=== PATIENT | female | born 1975 | race Caucasian/White ===

== ENCOUNTER 2017-11-25 20:08 | Inpatient (IN) ==
[2017-11-26] MEDS ORDERED: ONDANSETRON 4 MG/2 ML VIAL IV STA (03:54)
[2017-11-26] MEDS ORDERED: MORPHINE 2 MG/1 ML SYRINGE IV STA ×2 (03:54→04:12)
[2017-11-26 04:03] LABS: Basophils % 0.3 % (0.0-0.8); Eosinophils # 0.1 10*3/uL (0.0-0.87); Eosinophils % 1.6 % (0.00-10.9); Hematocrit 39.8 VOL% (35.7-47.0); Immature Granulocytes % 0.3 %; Immature Granulocytes Absolute 0.03 #; Lymphocytes # 1.7 10*3/uL (1.4-4.0); Lymphocytes % 19.5 % (21.3-54.2); Mean Corpuscular HGB Conc 32.7 GM/DL (32-36); Mean Corpuscular Hemoglobin 27 PG (27-34); Mean Corpuscular Volume 82.6 FL (87-102); Mean Platelet Volume 10.4 FL (9.6-12.0); Monocytes # 0.5 10*3/uL (0.11-0.8); Monocytes % 5.8 % (1.7-12.7); Neutrophils # 6.3 10*3/uL (1.4-7.4); Neutrophils % 72.5 % (38.7-73.9); Platelet Count 176 T/CUMM (130-400); Red Blood Count 4.82 MC/CUMM (3.8-5.5); Red Cell Distribution Width 13.9 % (9.3-17.3); White Blood Count 8.7 T/CUMM (4-12)
[2017-11-26] MEDS ORDERED: MORPHINE 4 MG/1 ML VIAL ONE (04:08)
[2017-11-26] MEDS ORDERED: ONDANSETRON 4 MG/2 ML VIAL ONE (04:08)
[2017-11-26 04:13] LABS: Albumin 3.7 G/DL (3.4-5.0); Bilirubin,Total 0.5 MG/DL (0.2-1.0); Calcium 8.4 MG/DL (8.5-10.1); Osmolality,Calculated 279.4 MOS/KG (273-304); Potassium 3.7 MMOL/L (3.5-5.1); Total Protein 6.8 G/DL (6.4-8.3)
[2017-11-26 04:14] LABS: Apearance,Urine CLOUDY (Clear); Bilirubin,Urine Negative (Negative); Blood, Urine Small mg/dL (Negative); Glucose,Urine (UA) Negative (Negative); Ketones,Urine Negative (Negative); Mucus,Urine Occasional /LPF (Occasional); Nitrite,Urine Negative (Negative); Protein,Urine Negative; RBC,Urine 9 /HPF (0-4); Squamous Epithelial Cell,Urine Many /HPF (0-10); Urine Color Yellow (Yellow); Urine Urobilinogen < 2.0 EU/DL (0.2-1.0); WBC,Urine 3 /HPF (0-6)
[2017-11-26 04:33] LABS: Lactic Acid 0.9 MMOL/L (0.4-2.0)
[2017-11-26] MEDS ORDERED: CEFEPIME 2,000 MG in SODIUM CHLORIDE 0.9% 100 ML IV STA (05:49)
[2017-11-26] MEDS ORDERED: metroNIDAZOLE INJ 500 MG in PREMIX 1 EACH IV STA (05:50)
[2017-11-26] MEDS ORDERED: metroNIDAZOLE 500 MG/100 ML PREMIX IV ONE (06:47)
[2017-11-26] MEDS ORDERED: ACETAMINOPHEN 325 MG TABLET PO PRN (07:54)
[2017-11-26] MEDS ORDERED: CEFEPIME 2,000 MG VIAL ONE (08:18)
[2017-11-26] MEDS: PIPERACILLIN/TAZOBACTAM 3,375 MG in SODIUM CHLORIDE 0.9% 100 ML IV SCH ×3 (10:18→23:45)
[2017-11-26] MEDS: SODIUM CHLORIDE 0.9% 1,000 ML IV SCH ×3 (10:57→21:09)
[2017-11-26] MEDS: KETOROLAC 15 MG/1 ML VIAL IV SCH ×2 (16:24→22:29)
[2017-11-26] MEDS: PANTOPRAZOLE 40 MG TABLET PO SCH (21:09)
[2017-11-26] MEDS: ATORVASTATIN 20 MG TABLET PO SCH (21:09)
[2017-11-27] MEDS: SODIUM CHLORIDE 0.9% 1,000 ML IV SCH ×2 (00:29→15:01)
[2017-11-27] MEDS: KETOROLAC 15 MG/1 ML VIAL IV SCH ×4 (03:46→21:34)
[2017-11-27 05:30] LABS: Basophils % 0.4 % (0.0-0.8); Eosinophils # 0.1 10*3/uL (0.0-0.87); Eosinophils % 1.8 % (0.00-10.9); Hematocrit 41.3 VOL% (35.7-47.0); Hemoglobin 13.4 GM/DL (12.0-16.0); Immature Granulocytes % 0.5 %; Immature Granulocytes Absolute 0.04 #; Lymphocytes # 1.5 10*3/uL (1.4-4.0); Lymphocytes % 20.1 % (21.3-54.2); Mean Corpuscular HGB Conc 32.4 GM/DL (32-36); Mean Corpuscular Hemoglobin 27 PG (27-34); Mean Corpuscular Volume 83.9 FL (87-102); Mean Platelet Volume 10.2 FL (9.6-12.0); Monocytes # 0.5 10*3/uL (0.11-0.8); Monocytes % 6.5 % (1.7-12.7); Neutrophils # 5.2 10*3/uL (1.4-7.4); Neutrophils % 70.7 % (38.7-73.9); Platelet Count 163 T/CUMM (130-400); Red Blood Count 4.92 MC/CUMM (3.8-5.5); White Blood Count 7.4 T/CUMM (4-12)
[2017-11-27 06:02] LABS: Calcium 8.5 MG/DL (8.5-10.1)
[2017-11-27 06:03] LABS: Osmolality,Calculated 277.4 MOS/KG (273-304)
[2017-11-27] MEDS: PANTOPRAZOLE 40 MG TABLET PO SCH ×2 (08:24→21:34)
[2017-11-27] MEDS: PIPERACILLIN/TAZOBACTAM 3,375 MG in SODIUM CHLORIDE 0.9% 100 ML IV SCH ×3 (08:24→23:52)
[2017-11-27] MEDS: SERTRALINE 100 MG TABLET PO SCH (08:24)
[2017-11-27] MEDS: ATORVASTATIN 20 MG TABLET PO SCH (21:34)
[2017-11-28 05:24] LABS: Basophils % 0.3 % (0.0-0.8); Eosinophils # 0.1 10*3/uL (0.0-0.87); Eosinophils % 1.6 % (0.00-10.9); Hematocrit 36.1 VOL% (35.7-47.0); Immature Granulocytes % 0.6 %; Immature Granulocytes Absolute 0.04 #; Lymphocytes # 1.5 10*3/uL (1.4-4.0); Lymphocytes % 21.7 % (21.3-54.2); Mean Corpuscular HGB Conc 33.2 GM/DL (32-36); Mean Corpuscular Hemoglobin 27 PG (27-34); Mean Corpuscular Volume 81.7 FL (87-102); Mean Platelet Volume 10.5 FL (9.6-12.0); Monocytes # 0.4 10*3/uL (0.11-0.8); Monocytes % 6.1 % (1.7-12.7); Neutrophils # 4.8 10*3/uL (1.4-7.4); Neutrophils % 69.7 % (38.7-73.9); Platelet Count 151 T/CUMM (130-400); Red Blood Count 4.42 MC/CUMM (3.8-5.5); Red Cell Distribution Width 13.7 % (9.3-17.3); White Blood Count 6.8 T/CUMM (4-12)
[2017-11-28 05:55] LABS: Potassium 4.1 MMOL/L (3.5-5.1)
[2017-11-28] MEDS: KETOROLAC 15 MG/1 ML VIAL IV SCH ×4 (05:56→21:36)
[2017-11-28] MEDS: SODIUM CHLORIDE 0.9% 1,000 ML IV SCH ×3 (06:39→18:09)
[2017-11-28] MEDS: SERTRALINE 100 MG TABLET PO SCH (08:20)
[2017-11-28] MEDS: PANTOPRAZOLE 40 MG TABLET PO SCH ×2 (08:20→21:35)
[2017-11-28] MEDS: PIPERACILLIN/TAZOBACTAM 3,375 MG in SODIUM CHLORIDE 0.9% 100 ML IV SCH ×2 (08:22→17:57)
[2017-11-28] MEDS: ATORVASTATIN 20 MG TABLET PO SCH (21:35)
[2017-11-28] MEDS ORDERED: rOPINIRole 1 MG TABLET PO SCH (21:44)
[2017-11-28] MEDS ORDERED: GENTAMICIN INJ 80 MG in PREMIX 1 EACH IV ONE (22:00)
[2017-11-29] MEDS: PIPERACILLIN/TAZOBACTAM 3,375 MG in SODIUM CHLORIDE 0.9% 100 ML IV SCH ×2 (00:37→09:43)
[2017-11-29] MEDS: SODIUM CHLORIDE 0.9% 1,000 ML IV SCH ×2 (00:38→20:28)
[2017-11-29] MEDS: KETOROLAC 15 MG/1 ML VIAL IV SCH ×2 (04:51→09:47)
[2017-11-29] MEDS: PANTOPRAZOLE 40 MG TABLET PO SCH ×2 (09:44→20:21)
[2017-11-29] MEDS: SERTRALINE 100 MG TABLET PO SCH (09:44)
[2017-11-29] MEDS ORDERED: GENTAMICIN INJ 80 MG in PREMIX 1 EACH IV ONE ×2 (12:00→12:39)
[2017-11-29] MEDS: metroNIDAZOLE INJ 500 MG in PREMIX 1 EACH IV SCH ×2 (14:22→20:21)
[2017-11-29] MEDS: ENOXAPARIN 40 MG/0.4 ML SYRINGE SUBCUT SCH (14:23)
[2017-11-29] MEDS: ATORVASTATIN 20 MG TABLET PO SCH (20:21)
[2017-11-30] MEDS: metroNIDAZOLE INJ 500 MG in PREMIX 1 EACH IV SCH ×3 (01:49→15:26)
[2017-11-30 04:06] LABS: Basophils % 0.1 % (0.0-0.8); Eosinophils # 0.2 10*3/uL (0.0-0.87); Eosinophils % 2.5 % (0.00-10.9); Hematocrit 34.7 VOL% (35.7-47.0); Hemoglobin 11.5 GM/DL (12.0-16.0); Immature Granulocytes % 0.3 %; Immature Granulocytes Absolute 0.02 #; Lymphocytes # 1.5 10*3/uL (1.4-4.0); Lymphocytes % 19.6 % (21.3-54.2); Mean Corpuscular HGB Conc 33.1 GM/DL (32-36); Mean Corpuscular Hemoglobin 27 PG (27-34); Mean Corpuscular Volume 82.6 FL (87-102); Mean Platelet Volume 10.8 FL (9.6-12.0); Monocytes # 0.4 10*3/uL (0.11-0.8); Monocytes % 5.3 % (1.7-12.7); Neutrophils # 5.5 10*3/uL (1.4-7.4); Neutrophils % 72.2 % (38.7-73.9); Platelet Count 151 T/CUMM (130-400); Red Cell Distribution Width 13.7 % (9.3-17.3); White Blood Count 7.6 T/CUMM (4-12)
[2017-11-30] MEDS: SODIUM CHLORIDE 0.9% 1,000 ML IV SCH ×4 (06:01→16:44)
[2017-11-30] MEDS: SERTRALINE 100 MG TABLET PO SCH (08:43)
[2017-11-30] MEDS: PANTOPRAZOLE 40 MG TABLET PO SCH (08:43)
[2017-11-30] MEDS: ENOXAPARIN 40 MG/0.4 ML SYRINGE SUBCUT SCH (15:24)
[2017-11-30 16:40] VITALS: BP 112/64
== END 2017-11-30 17:48 | disposition home or self-care (01) | DRG 392 ==
LOC: N.ED 20:08 → SUATTDRO 11-26 07:52 → N.EDINP 11-26 07:52 → N.3E 11-26 09:40
PROVIDERS: ADMIT Internal Medicine; ATTEND Family Medicine

== ENCOUNTER 2018-10-25 04:39 | Observation (INO) ==
[2018-10-25] MEDS ORDERED: ONDANSETRON 4 MG/2 ML VIAL IV STA (06:38)
[2018-10-25] MEDS ORDERED: SODIUM CHLORIDE 0.9% 1,000 ML IV STA (06:38)
[2018-10-25] MEDS ORDERED: KETOROLAC 30 MG/1 ML VIAL IV STA (06:39)
[2018-10-25] MEDS ORDERED: methylPREDNISolone SOD SUC 125 MG/2 ML VIAL IV STA (09:18)
[2018-10-25] MEDS: METOCLOPRAMIDE 10 MG/2 ML VIAL IV SCH ×2 (12:52→18:10)
[2018-10-25] MEDS: diphenhydrAMINE 50 MG/1 ML VIAL IV SCH ×2 (12:56→18:10)
[2018-10-25] MEDS: SODIUM CHLOR 0.9% KCL 40 MEQ 40 MEQ/1,000 ML BAG IV SCH ×2 (13:06→21:38)
[2018-10-25] MEDS: rOPINIRole 1 MG TABLET PO SCH (20:34)
[2018-10-25] MEDS: PANTOPRAZOLE 40 MG TABLET PO SCH (20:34)
[2018-10-26] MEDS: diphenhydrAMINE 50 MG/1 ML VIAL IV SCH ×5 (01:19→23:57)
[2018-10-26] MEDS: METOCLOPRAMIDE 10 MG/2 ML VIAL IV SCH ×5 (01:20→23:57)
[2018-10-26 05:35] LABS: Hematocrit 34.6 VOL% (35.7-47.0); Hemoglobin 11.2 GM/DL (12.0-16.0); Immature Granulocytes % 0.4 %; Immature Granulocytes Absolute 0.03 #; Lymphocytes # 0.9 10*3/uL (1.4-4.0); Lymphocytes % 12.2 % (21.3-54.2); Mean Corpuscular HGB Conc 32.4 GM/DL (32-36); Mean Corpuscular Hemoglobin 27 PG (27-34); Mean Corpuscular Volume 82.2 FL (87-102); Mean Platelet Volume 10.4 FL (9.6-12.0); Monocytes # 0.6 10*3/uL (0.11-0.8); Monocytes % 8.8 % (1.7-12.7); Neutrophils # 5.5 10*3/uL (1.4-7.4); Neutrophils % 78.6 % (38.7-73.9); Platelet Count 189 T/CUMM (130-400); Red Blood Count 4.21 MC/CUMM (3.8-5.5); Red Cell Distribution Width 13.8 % (9.3-17.3); White Blood Count 6.9 T/CUMM (4-12)
[2018-10-26 05:46] LABS: Calcium 8.2 MG/DL (8.5-10.1); Osmolality,Calculated 288.7 MOS/KG (273-304); Potassium 4.1 MMOL/L (3.5-5.1)
[2018-10-26] MEDS: SODIUM CHLOR 0.9% KCL 40 MEQ 40 MEQ/1,000 ML BAG IV SCH ×3 (06:27→16:40)
[2018-10-26] MEDS: PANTOPRAZOLE 40 MG TABLET PO SCH ×2 (08:59→20:10)
[2018-10-26] MEDS: SERTRALINE 100 MG TABLET PO SCH (08:59)
[2018-10-26] MEDS ORDERED: BUTALBITAL/ACETAMIN/CAFFEINE 50-325-40 MG TABLET PO PRN (09:14)
[2018-10-26] MEDS: KETOROLAC 30 MG/1 ML VIAL IV PRN (10:20)
[2018-10-26] MEDS: rOPINIRole 1 MG TABLET PO SCH (20:10)
[2018-10-27] MEDS: diphenhydrAMINE 50 MG/1 ML VIAL IV SCH ×3 (06:05→18:24)
[2018-10-27] MEDS: METOCLOPRAMIDE 10 MG/2 ML VIAL IV SCH ×3 (06:08→18:24)
[2018-10-27] MEDS: SERTRALINE 100 MG TABLET PO SCH (08:30)
[2018-10-27] MEDS: PANTOPRAZOLE 40 MG TABLET PO SCH ×2 (08:30→20:51)
[2018-10-27] MEDS: SODIUM CHLOR 0.9% KCL 40 MEQ 40 MEQ/1,000 ML BAG IV SCH ×2 (09:29→13:06)
[2018-10-27] MEDS ORDERED: methylPREDNISolone 4 MG TABLET PO SCH ×2 (09:30)
[2018-10-27] MEDS: methylPREDNISolone 4 MG TABLET PO SCH ×4 (10:51→20:51)
[2018-10-27] MEDS: KETOROLAC 30 MG/1 ML VIAL IV PRN (15:20)
[2018-10-27] MEDS: rOPINIRole 1 MG TABLET PO SCH (20:51)
[2018-10-28] MEDS: METOCLOPRAMIDE 10 MG/2 ML VIAL IV SCH ×3 (00:58→12:10)
[2018-10-28] MEDS: diphenhydrAMINE 50 MG/1 ML VIAL IV SCH ×3 (01:02→12:14)
[2018-10-28] MEDS: SODIUM CHLOR 0.9% KCL 40 MEQ 40 MEQ/1,000 ML BAG IV SCH ×3 (05:19→11:56)
[2018-10-28] MEDS: methylPREDNISolone 4 MG TABLET PO SCH ×2 (09:41→12:10)
[2018-10-28] MEDS: PANTOPRAZOLE 40 MG TABLET PO SCH (09:42)
[2018-10-28] MEDS: SERTRALINE 100 MG TABLET PO SCH (09:42)
[2018-10-28 13:32] VITALS: BP 134/73
[2018-10-29] MEDS ORDERED: CHOLECALCIFEROL 1,000 UNIT TABLET PO SCH (09:00)
== END 2018-10-28 14:41 | disposition home or self-care (01) ==
LOC: N.EDINP 04:39 → N.ED 04:39 → SUATTDRO 10:00 → N.EDINP 15:42 → N.5E 16:04
PROVIDERS: ADMIT Hospitalist; ATTEND Hospitalist

== ENCOUNTER 2020-05-15 07:27 | Observation (INO) ==
[2020-05-15] MEDS ORDERED: HYDROmorphone 2 MG/1 ML VIAL IV STA (08:01)
[2020-05-15] MEDS ORDERED: ONDANSETRON 4 MG/2 ML VIAL IV STA (08:01)
[2020-05-15] MEDS ORDERED: methylPREDNISolone SOD SUC 125 MG/2 ML VIAL IV STA (08:12)
[2020-05-15 08:17] LABS: Basophils % 0.3 % (0.0-0.8); Eosinophils # 0.1 10*3/uL (0.0-0.87); Eosinophils % 1.5 % (0.00-10.9); Hematocrit 43.5 VOL% (35.7-47.0); Hemoglobin 14.4 GM/DL (12.0-16.0); Immature Granulocytes % 0.6 %; Immature Granulocytes Absolute 0.05 #; Lymphocytes # 1.4 10*3/uL (1.4-4.0); Lymphocytes % 17.9 % (21.3-54.2); Mean Corpuscular HGB Conc 33.1 GM/DL (32-36); Mean Corpuscular Volume 79.8 FL (87-102); Mean Platelet Volume 9.5 FL (9.6-12.0); Monocytes % 4.8 % (1.7-12.7); Neutrophils % 74.9 % (38.7-73.9); Platelet Count 207 T/CUMM (130-400); Red Blood Count 5.45 MC/CUMM (3.8-5.5); Red Cell Distribution Width 13.9 % (9.3-17.3); White Blood Count 7.9 T/CUMM (4-12)
[2020-05-15 09:27] LABS: Sedimentation Rate-Westergren 22 MM/HR (0-20)
[2020-05-15] MEDS ORDERED: ACETAMINOPHEN 325 MG TABLET PO PRN (10:00)
[2020-05-15] MEDS ORDERED: ONDANSETRON 4 MG/2 ML VIAL IV PRN (10:00)
[2020-05-15] MEDS ORDERED: DEXTROSE 50% 25 GM/50 ML VIAL IV PRN (10:00)
[2020-05-15] MEDS ORDERED: GLUCAGON 1 MG VIAL IM PRN (10:00)
[2020-05-15] MEDS: MORPHINE 4 MG/1 ML VIAL IV PRN ×2 (13:25→20:20)
[2020-05-15] MEDS: SODIUM CHLORIDE 0.9% 1,000 ML IV SCH ×2 (14:09→21:35)
[2020-05-15] MEDS ORDERED: ROSUVASTATIN 10 MG TABLET PO SCH (21:00)
[2020-05-15] MEDS ORDERED: rOPINIRole 1 MG TABLET PO SCH (21:00)
[2020-05-16] MEDS: MORPHINE 4 MG/1 ML VIAL IV PRN (05:51)
[2020-05-16] MEDS: SODIUM CHLORIDE 0.9% 1,000 ML IV SCH ×2 (05:55→14:05)
[2020-05-16 06:51] LABS: Basophils % 0.1 % (0.0-0.8); Eosinophils % 0.4 % (0.00-10.9); Hematocrit 38.2 VOL% (35.7-47.0); Hemoglobin 12.6 GM/DL (12.0-16.0); Immature Granulocytes % 0.4 %; Immature Granulocytes Absolute 0.04 #; Lymphocytes # 1.5 10*3/uL (1.4-4.0); Mean Corpuscular Volume 80.4 FL (87-102); Mean Platelet Volume 9.5 FL (9.6-12.0); Monocytes % 5.7 % (1.7-12.7); Neutrophils % 79.4 % (38.7-73.9); Platelet Count 198 T/CUMM (130-400); Red Blood Count 4.75 MC/CUMM (3.8-5.5); Red Cell Distribution Width 13.4 % (9.3-17.3)
[2020-05-16 07:24] LABS: Alanine Aminotransferase 13 U/L (13-56); Albumin 2.9 G/DL (3.4-5.0); Alkaline Phosphatase 74 U/L (45-117); Aspartate Amino Transferase 10 U/L (0-37); Bilirubin,Total < 0.39 MG/DL (0.2-1.0); Blood Urea Nitrogen 14 MG/DL (7-18); Calcium 8.3 MG/DL (8.5-10.1); Estimated Glom Filtration Rate 111 ML/MIN; Glucose 94 MG/DL (74-106); HDL Cholesterol 50 MG/DL (40-60); Risk Ratio 2.82; Total Protein 6.2 G/DL (6.4-8.3); Triglycerides 86 MG/DL (2-150); VLDL CHOLESTEROL 17.2 MG/DL
[2020-05-16 08:36] LABS: PT Patient Result 10.3 SECS (9.8-11.9)
[2020-05-16] MEDS ORDERED: DIAZEPAM 5 MG TABLET PO ONE (09:00)
[2020-05-16] MEDS ORDERED: SERTRALINE 100 MG TABLET PO SCH (09:00)
[2020-05-16] MEDS ORDERED: TOPIRAMATE 25 MG TABLET PO SCH (09:30)
[2020-05-16 11:14] VITALS: BP 131/87
[2020-05-23] MEDS ORDERED: TOPIRAMATE 25 MG TABLET PO SCH (09:00)
== END 2020-05-16 16:14 | disposition home or self-care (01) ==
LOC: N.EDINP 07:27 → N.ED 07:27 → SUATTDRO 10:00 → N.EDINP 11:51 → N.3E 13:02
PROVIDERS: ADMIT Internal Medicine; ATTEND Internal Medicine Geriatric Medicine